=== PATIENT | female | born 1950 | race Caucasian/White ===

== ENCOUNTER → 2016-07-30 | Outpatient (CLI) | payer MEDICARE ==
[~2016-07-30] MED LIST: BUPR150T3 PO; ESCI10TA PO; FURO40TA PO; LEVO125T4 PO; LISI10TA3 PO; PANT40TA3 PO
[2016-07-30 12:56] LABS: AUTOMATED NEUTROPHIL # 3.9 TH/MM3 (1.8-7.7); BASOPHIL % 0.6 % (0.0-2.0); EOSINOPHIL # 0.1 TH/MM3 (0-0.4); EOSINOPHIL % 1.3 % (0.0-4.0); HEMATOCRIT 37.9 % (35.0-46.0); HEMO FLAGS DIFF FINAL; LYMPH % 33.8 % (9.0-44.0); LYMPHOCYTE # 2.3 TH/MM3 (1.0-4.8); MEAN CELL VOLUME 91.8 FL (80.0-100.0); MEAN CORPUSCULAR HEMOGLOBIN 29.9 PG (27.0-34.0); MEAN CORPUSCULAR HGB CONC 32.5 % (32.0-36.0); MONO % 6.6 % (0.0-8.0); NEUT % 57.7 % (16.0-70.0); PLATELET COUNT 230 TH/MM3 (150-450); RED BLOOD COUNT 4.12 MIL/MM3 (4.00-5.30); RED CELL DISTRIBUTION WIDTH 15.9 % (11.6-17.2); WHITE BLOOD COUNT 6.8 TH/MM3 (4.0-11.0)
--- NOTE | 2016-07-31 17:31 | EKG ---
Date Performed: 07/30/2016 Time Performed: 12:32:35 PTAGE: 66 years EKG: Sinus rhythm LOW QRS VOLTAGE IN PRECORDIAL LEADS PROBABLE INFERIOR MYOCARDIAL INFARCTION, PROBABLY OLD ABNORMAL E CG NO PREVIOUS TRACING DOCTOR: Librado Priest Interpretating Date/Time 07/31/2016 17:28:33
== END ==
LOC: CPRE 11:16
PROVIDERS: ATTEND Obstetrics & Gynecology
DX: Z01.810 Encounter for preprocedural cardiovascular examination (principal); Z01.812 Encounter for preprocedural laboratory examination; D25.9 Leiomyoma of uterus, unspecified
CPT/HCPCS: 36415; 85025; 93005

== ENCOUNTER 2016-08-04 06:11 | Observation (INO) | payer MEDICARE ==
[~2016-08-04] VITALS: Ht 147.3 cm; Wt 57.5 kg
[2016-08-04] MEDS ORDERED: POVIDONE IODINE 5% (ANTISEPSIS KIT) 4 APPLICATIONS EACH NARE PRN (06:45)
[2016-08-04] MEDS ORDERED: MIDAZOLAM HCL 2 MG/2 ML VIAL IV PRN (06:45)
[2016-08-04] MEDS ORDERED: SODIUM CHLORID 0.9% 500 ML IV PRN (06:45)
[2016-08-04] MEDS ORDERED: CHLORHEXIDINE GLUCONATE 2 % 1 PACK (2 CLOTHS) TOPICAL PRN (06:45)
[2016-08-04] MEDS ORDERED: METOPROLOL TARTRATE 25 MG TAB PO PRN (06:45)
[2016-08-04] MEDS ORDERED: INSULIN HUMAN REGULAR 1,000 UNITS/10 ML VIAL SQ PRN (06:45)
[2016-08-04] MEDS ORDERED: LACTATED RINGER'S 1000 ML IV PRN (06:45)
[2016-08-04] MEDS ORDERED: LEVO125T4 PO (06:54)
[2016-08-04] MEDS ORDERED: LISI10TA3 PO (06:54)
[2016-08-04] MEDS ORDERED: ESCI10TA PO (06:56)
[2016-08-04] MEDS ORDERED: PANT40TA3 PO (06:56)
[2016-08-04] MEDS ORDERED: FURO40TA PO (06:56)
[2016-08-04] MEDS ORDERED: BUPR150T3 PO (06:56)
[2016-08-04 06:57] VITALS: BP 133/84; PULSE 76; RESP 16; TEMP 98.1; O2SAT 98
[2016-08-04] MEDS ORDERED: ONDANSETRON HCL 4 MG/2 ML VIAL IV PUSH PRN ×2 (07:00→10:45)
[2016-08-04] MEDS ORDERED: ceFAZolin INJ 1,000 MG VIAL ONE (07:25)
[2016-08-04] MEDS ORDERED: SODIUM CHLORIDE 0.9% INJ 100 ML ONE (07:26)
[2016-08-04] MEDS ORDERED: ceFAZolin 1,000 MG/NS 100 ML IV SCH ×2 (07:30)
[2016-08-04] MEDS ORDERED: fentaNYL CITRATE 250 MCG/5 ML AMP ONE (07:33)
[2016-08-04] MEDS ORDERED: ACETAMINOPHEN 1000 MG/100 ML VIAL IV ONE (07:33)
[2016-08-04] MEDS ORDERED: MIDAZOLAM HCL 2 MG/2 ML VIAL ONE (07:33)
[2016-08-04] MEDS ORDERED: FAMOTIDINE 20 MG/2 ML VIAL ONE (07:34)
[2016-08-04] MEDS ORDERED: DEXAMETHASONE SOD PHOS 4 MG/ML VIAL ONE (07:34)
[2016-08-04] MEDS ORDERED: DICLOFENAC SODIUM 37.5 MG/ML VIAL IV PUSH ONE (07:35)
[2016-08-04] MEDS ORDERED: MORPHINE SULFATE 30 MG/30 ML PCA ONE (10:19)
[2016-08-04] MEDS: DEXT 5%-NACL 0.45% 1000 ML INJ 1,000 ML IV SCH ×2 (10:35→18:26)
[2016-08-04] MEDS ORDERED: DO NOT ADM ANY ANTICOAGULANT DRUGS PRN (10:45)
[2016-08-04] MEDS ORDERED: oxyCODONE/ACETAMINOPHEN 5 MG/325 MG TAB PO PRN (10:45)
[2016-08-04] MEDS ORDERED: MORPHINE SULFATE 30 MG/30 ML PCA IV SCH (10:45)
[2016-08-04] MEDS ORDERED: NALOXONE HCL 0.4 MG/ML AMP IV PRN (10:45)
[2016-08-04] MEDS ORDERED: ONDANSETRON HCL 4 MG/2 ML VIAL IV PUSH ONE (12:00)
[2016-08-04] MEDS ORDERED: NEOSTIGMINE 3 MG/3 ML SYR IV ONE (12:00)
[2016-08-04] MEDS ORDERED: PROPOFOL 200 MG/20 ML AMP IV ONE (12:00)
[2016-08-04] MEDS ORDERED: PHENYLEPH/NS 1000 MCG/10 ML SYR IV ONE (12:00)
[2016-08-04] MEDS ORDERED: LACTATED RINGER'S 1000 ML INJ 1,000 ML IV ONE (12:00)
[2016-08-04] MEDS ORDERED: ePHEDrine/NS 25 MG/5 ML SYR IV ONE (12:00)
[2016-08-04] MEDS: PCA - TOTAL MG MORPHINE DELIVERED PER SHIFT SCH ×2 (14:00→23:00)
[2016-08-04 16:05] VITALS: BP 116/63; PULSE 97; RESP 24; TEMP 97.8; O2SAT 100
[2016-08-04 20:00] VITALS: BP 118/69; PULSE 85; RESP 15; TEMP 98.8; O2SAT 97
[2016-08-05 00:15] VITALS: BP 114/63; PULSE 78; RESP 16; TEMP 98.8; O2SAT 95
[2016-08-05] MEDS: DEXT 5%-NACL 0.45% 1000 ML INJ 1,000 ML IV SCH (02:30)
[2016-08-05 04:00] VITALS: BP 120/65; PULSE 85; RESP 15; TEMP 98; O2SAT 97
[2016-08-05] MEDS: PCA - TOTAL MG MORPHINE DELIVERED PER SHIFT SCH (06:00)
[2016-08-05 06:23] LABS: HEMATOCRIT 33.7 % (35.0-46.0)
[2016-08-05 08:00] VITALS: BP 110/74; PULSE 67; RESP 22; TEMP 97.7
--- NOTE | 2016-08-15 07:35 | MP ---
cc: RAZIA SHAIKH DATE OF SURGERY: 08/04/2016 PREOPERATIVE DIAGNOSIS Left ovarian cyst, leiomyomata uteri, pelvic pain. POSTOPERATIVE DIAGNOSIS Pelvic pain, leiomyomata uteri, pelvic adhesions. PROCEDURE Laparoscopic-assisted supracervical hysterectomy, left salpingo-oophorectomy. SURGEON MD Pauly ANESTHESIA General. ESTIMATED BLOOD LOSS 150 cc. COMPLICATIONS None. FINDINGS The patient had a uterus that was approximately 9-10 weeks size with multiple leiomyomata uteri. The largest of these was intramural, approximately 5 x 5 cm. Because it was so dense we were unable to morcellate it so we had to extend the lower midline incision to remove it. The cyst seen on her prior radiology studies on the left ovary was absent. She essentially had a normal left tube and ovary. The right tube and ovary were very densely scarred to the pelvic sidewall overlying the ureter and so I felt it safer to leave those in as they otherwise appeared normal. DESCRIPTION OF PROCEDURE The patient was brought into the operating room and following general anesthesia was placed in the dorsal lithotomy position. Her vagina, abdomen and perineum were prepped and draped. A HUMI catheter was placed in the uterus and a Willson catheter into the bladder. A 1 cm subumbilical skin incision was made. A Veress needle was inserted and 3 liters of CO2 was infused in the abdomen. The Veress needle was then removed and a laparoscope was placed without difficulty. A second and third puncture site were created under direct visualization. The findings were as noted above. The Harmonic scalpel was used to clamp, cut and seal the left infundibulopelvic ligament and left round ligament. The right upper broad ligaments were then sealed with the Harmonic scalpel and cut. The bladder peritoneum was sized and the bladder was sharply dissected off of the anterior cervix. The uterine vessels were then skeletonized, clamped, cut and sealed with the Harmonic scalpel. The cervix then transected across the upper portion with the Harmonic scalpel. The stump of the cervix and the endocervical canal were cauterized to maintain hemostasis. The uterus was then morcellated and removed. As noted above we were unable to morcellate the largest fibroid because of its dense calcification. We therefore extended the lower midline incision to approximately 5 cm with a scalpel. We were then able to remove the fibroid. The incision was closed with a 0 Vicryl stitch to the fascia and jon to the skin. Irrigation was performed in this area and hemostasis was good. A second look laparoscopy was performed and again good hemostasis was noted. The trocars were then removed from the other sites and the incisions were closed with subcuticular 4-0 Vicryl stitch. The patient was then taken to the recovery room in good condition with all counts correct and clear urine draining in her Willson catheter. MD GIORGIO Campa/LEORA /1:34 PM /7:28 AM
== END 2016-08-05 11:32 | disposition home or self-care (01) ==
LOC: HSDC 06:11 → EDUNIT# 08:45 → HSDI 16:25 → H1EA 17:42
PROVIDERS: ADMIT Obstetrics & Gynecology; ATTEND Obstetrics & Gynecology
DX: D25.9 Leiomyoma of uterus, unspecified (principal); N83.8 Other noninflammatory disorders of ovary, fallopian tube and broad ligament; N85.8 Other specified noninflammatory disorders of uterus; I10 Essential (primary) hypertension; K21.9 Gastro-esophageal reflux disease without esophagitis; R10.2 Pelvic and perineal pain; Z95.0 Presence of cardiac pacemaker
CPT/HCPCS: 00840; 58542; 85014; 85018; 86850; 86900; 86901; 88307; G0378; J0131; J0690; J1100; J1130; J2250; J2270; J2370; J2405; J2710; J3010; J7120; 82948